=== PATIENT | male | born 1945 | race Caucasian/White ===

== ENCOUNTER 2021-01-16 23:51 | Emergency (ER) | payer MEDICARE, BC, SELFPAY ==
[2021-01-17] VITALS: BP 147/70; PULSE 69; RESP 16; TEMP 36.4; O2SAT 100
--- NOTE | 2021-01-17 00:27 | ED.EXTPRO ---
HPI - Extremity Problem General Chief complaint: Extremity Problem,Nontraumatic Stated complaint: tingling arms from chemicals Time Seen by Provider: 01/17/21 00:17 History of Present Illness HPI Narrative: Patient is a 75-year-old male who presents ER with right arm tingling. Goes from the elbow down to the wrist. Is tingling and burning type sensation. Intermittent last for 3 to 4 minutes. Better when he rubs his arm. Believes it all started after spraining his arm with some bug killer. No rash. No chest pain or chest pressure. No exertional component. Continues to irritate him despite applying topical hydrocortisone and aloe vera. Related Data Allergies Allergy/AdvReac Type Severity Reaction Status Date / Time No Known Allergies Allergy Verified 01/17/21 00:08 Review of Systems Review of Systems: All systems reviewed & are unremarkable except as noted in HPI and below Constitutional: Constitutional: Denies chills and Denies fever(s) Cardiovascular: Cardiovascular: Denies chest pain and Denies radiating jaw, neck or arm pain Respiratory: Respiratory: Denies cough and Denies dyspnea Integumentary/Breasts: Skin/Breast: Denies pruritus, Denies erythema, Denies rash and Denies skin ulcer Neurologic: Denies syncope, Denies focal weakness and Denies numbness PMFSH Past Medical History Medical History (Updated 01/17/21 @ 00:30 by Rogerio High MD) Mixed hyperlipidemia Screening PSA (prostate specific antigen) Surgical History Surgical History (Updated 01/17/21 @ 00:29 by Rogerio High MD) H/O knee surgery History of right hip replacement Family History Family History Other Diabetes mellitus Hypertension Social History Social History Smoking status: Never smoker Alcohol intake: current Exam Narrative: Exam Narrative: GENERAL: Well-appearing, well-nourished, and in no acute distress. HEAD: Normocephalic, atraumatic. EXTREMITIES: Normal range of motion. No edema. SKIN: Warm, dry, no rash. NEURO: No focal deficits. Alert and oriented x3. PSYCH: Normal mood and affect. Course Course Emergency Course: Recommend Benadryl for symptoms. Discussed symptoms should improve and is felt to be a chemical irritation. Vital Signs Vital signs: Vital Signs Temperature 97.6 F 01/17/21 00:00 Pulse Rate 69 01/17/21 00:00 Respiratory Rate 16 01/17/21 00:00 Blood Pressure 147/70 H 01/17/21 00:00 Pulse Oximetry 100 01/17/21 00:00 Temperature 97.6 F 01/17/21 00:00 Pulse Rate 69 01/17/21 00:00 Respiratory Rate 16 01/17/21 00:00 Blood Pressure 147/70 H 01/17/21 00:00 Pulse Oximetry 100 01/17/21 00:00 Discharge Plan Discharge Clinical Impression: Contact dermatitis Patient Disposition: Home, Self-Care Condition: Stable Instructions: Contact Dermatitis (ED) Additional Instructions: Take Benadryl as needed for itching. Return to the ER if you cannot breathe, you cannot swallow, you have chest pain or shortness of breath, you have focal weakness in arm or leg. Prescriptions: No Action triamcinolone acetonide 0.1 % cream 1 applic TOPICAL BID Qty: 60 RF: 0 Follow-up/Referrals: Reyes Valero MD [Primary Care Provider] - 1 Week
[2021-01-17] MEDS: diphenhydrAMINE HCl CAP 25 MG CAPSULE PO (00:35)
== END 2021-01-17 00:41 | disposition home or self-care (01) ==
LOC: ANHED 01-17 00:31
PROVIDERS: Emergency Provider Emergency Medicine; PCP Family Medicine
DX: L25.9 Unspecified contact dermatitis, unspecified cause (principal); E78.2 Mixed hyperlipidemia; Z96.641 Presence of right artificial hip joint
CPT/HCPCS: 99282; A9270

== ENCOUNTER → 2021-09-28 15:14 | Outpatient (CLI) | payer MEDICARE, BC, SELFPAY ==
--- NOTE | ~2021-09-28 | XR_ITS ---
EXAMINATION: XR chest 2V DATE: 09/28/2021 15:34 INDICATION: Other chest pain. TECHNIQUE: Frontal and lateral views of the chest were obtained. COMPARISON: Chest 2 views 05/03/2017, chest CT 06/15/2017 FINDINGS: There are numerous nodules in the lungs bilaterally measuring up to 2 cm. There is mild ate lectasis at the lung bases. No pleural effusion or pneumothorax. The heart size is normal. There is m ild chronic anterior wedging of multiple thoracic vertebral bodies. IMPRESSION: 1. Multiple bilateral pulmonary nodules, likely metastatic disease. 2. Mild atelectasis at the lung bases. Reviewed, dictated and finalized at location A.
== END ==
PROVIDERS: Visit Provider Family Medicine
DX: R07.89 Other chest pain (principal); R91.8 Other nonspecific abnormal finding of lung field
CPT/HCPCS: 71046

== ENCOUNTER 2021-09-29 09:27 | Outpatient (CLI) | payer MEDICARE, SELFPAY ==
--- NOTE | ~2021-09-29 | CT_ITS ---
EXAMINATION: CT chest abdomen pelvis w con DATE: 09/29/2021 09:58 INDICATION: Multiple pulmonary nodules, cough, weight loss and mid chest pain TECHNIQUE: Computed tomography (CT) of the chest, abdomen, and pelvis was performed with 100 mL Omnip aque-350 intravenous contrast. Automated exposure control and iterative reconstruction technique were employed. The dose-length product was 995.73 mGy-cm. COMPARISON: 06/15/2017 FINDINGS: CHEST CT: There are multiple bilateral pulmonary nodules with random distribution suspicious for metastatic dis ease. The largest nodules in both lungs are at the posterior medial lung bases measuring 4.6 cm on th e left and 2.0 cm on the right. Very small left pleural effusion. Mild bibasilar atelectasis along th e diaphragm and additional mild discoid atelectasis in the bilateral lower lobes and lingula. No pneu monia, pulmonary edema or pneumothorax. Heart size is normal. No pericardial effusion. Thoracic aorta is normal in caliber with no dissection. No pathologically enlarged thoracic lymphadenopathy. Lucent hemangiomas with typical thickened internal vertical trabecular pattern at both T10 and T11. Chronic mild anterior wedging at T8. ABDOMEN/PELVIS CT: No interval change in fluid attenuation cysts at the dome of the liver, the largest measuring 1.3 cm. Calcified gallstone in the body of the normal-appearing gallbladder. Pancreas, spleen and bilateral adrenal glands are normal. A few small bilateral renal cysts, the largest on the left measuring up to 2 cm. 3 mm nonobstructing stone in the mid left kidney. Bowels are normal with no wall thickening or obstruction. Bladder is decompressed. There is streak artifact in the pelvis resulting from a right total hip arthroplasty. There is an additional hemangioma at L5. Mild to moderate lower lumbar spondy losis with 6 mm anterolisthesis L4 on L5. No suspicious lytic or blastic bone lesions. IMPRESSION: 1. Multiple pulmonary nodules and masses scattered throughout both lungs with random distribution patricio picious for metastatic disease of indeterminate primary. If there is no prior known primary malignanc y would consider CT-guided biopsy for further evaluation. 2. Very small left pleural effusion. 3. 3 mm nonobstructing left renal stone. Reviewed, dictated and finalized at location A. IMPRESSION: 1. Multiple pulmonary nodules and masses scattered throughout both lungs with r andom distribution suspicious for metastatic disease of indeterminate primary. If there is no prior known primary malignancy would consider CT-guided biopsy f or further evaluation. 2. Very small left pleural effusion. 3. 3 mm nonobstructing left renal stone.
[2021-09-29 09:54] LABS: Estimated Glomerular Filt Rate > 60
== END 2021-09-29 09:28 | disposition home or self-care (01) ==
LOC: ANHIMG 09:30
PROVIDERS: PCP Family Medicine; Visit Provider Family Medicine
DX: R91.8 Other nonspecific abnormal finding of lung field (principal); R63.4 Abnormal weight loss; M48.54XA Collapsed vertebra, not elsewhere classified, thoracic region, initial encounter for fracture; K80.80 Other cholelithiasis without obstruction; K76.89 Other specified diseases of liver; N20.0 Calculus of kidney; M47.816 Spondylosis without myelopathy or radiculopathy, lumbar region; J90 Pleural effusion, not elsewhere classified
CPT/HCPCS: 71260; 74177; Q9967

== ENCOUNTER 2021-10-06 08:57 | Outpatient (CLI) | payer MEDICARE, SELFPAY ==
[2021-10-01 09:54] VITALS: BMI 29.6
--- NOTE | 2021-10-01 09:57 | SUR.PREOP ---
Report to the Outpatient Waiting Room, entrance under the green pavilion located off [facility], at time _0900 on date _10/06/21 . OR Time: __1100 . - You and your visitor will be asked a series of questions to screen for COVID 19 for your protection. - A mask is required within the hospital. Preoperative COVID Testing Requirements: No COVID Test needed if: (proof is required; if not received patient will have Rapid Test prior to entry) - Patient has received COVID Vaccine at least 14 days prior to procedure date or - Patient has positive COVID test result within last 90 days of surgery date. COVID Test needed if above criteria is not met If not COVID vaccinated a COVID test must be conducted within 72 hours of surgery and patient is asked to isolate self from time of testing until procedure. You will go to the [facility] for your COVID testing. The [facility] site is located at the corner of [address] [facility]. You will only be called if COVID results are positive and your surgeon may reschedule your elective surgery date. NOTHING TO EAT OR DRINK 6 HOURS PRIOR TO PROCEDURE Take the following medications with a SIP of water the morning of surgery: ___NONE Medications to discontinue per physician NONE Date to take last dose Please no make-up, nail kazakh, hairspray, perfume, deodorant, or body powder the day of surgery. No jewelry (including any body piercings) or valuables the day of surgery, leave them at home. Please take a shower or bath the night before, or the morning of, surgery with an antibacterial soap. Wear comfortable, loose fitting clothing. Children are encouraged to wear pajamas. - Jewelry must be removed prior to entering the operating room. Rings and piercings that are not removed may be cut off. - The hospital will not accept responsibility for valuables. - Please leave all valuables, including medications, at home the day of surgery. If you are going home after surgery, a licensed helper driver must drive you home. - NO public transportation without another adult. - We recommend that an adult stay with you for 24 hours following discharge. - We also recommend that you do not drive, make important decision, drink alcoholic beverages, or take any drugs that were not prescribed by your health care provider for at least 24 hours after your discharge time. One visitor will be allowed to accompany the patient into the hospital. Patients visitor will be instructed to remain with patient at all times or leave the building. We will allow the visitor to come back to the postoperative area when patient is ready. Follow any additional instructions given to you. Telephone instructions given to __PATIENT and asked if any additional questions and then verbalized understanding. Patient advised to call surgeon office or pre surgery nurse liaison [phone] if any additional questions.
[2021-10-06] VITALS (10 sets, daily range): BP systolic 118–148; BP diastolic 65–80; PULSE 82–93; RESP 16–20; TEMP 36.3; O2SAT 96–100
--- NOTE | ~2021-10-06 | XR_ITS ---
EXAMINATION: XR chest 1V portable DATE: 10/06/2021 12:33 INDICATION: Status post percutaneous left lung biopsy TECHNIQUE: frontal view of the chest was obtained. COMPARISON: Chest radiograph dated 10/06/[address] dated 09/29/2021 FINDINGS: Lung volumes remain small with persistent mild bibasilar atelectasis/scarring. There are numerous sca ttered bilateral pulmonary nodules consistent with metastatic disease. No pneumothorax or definitive pleural effusion. The cardiomediastinal silhouette is normal. IMPRESSION: 1. No pneumothorax or other acute cardiopulmonary disease post percutaneous left lung biopsy. 2. Numerous bilateral pulmonary nodules consistent with metastatic disease. Reviewed, dictated and finalized at location A. IMPRESSION: 1. No pneumothorax or other acute cardiopulmonary disease post percutaneous lef t lung biopsy. 2. Numerous bilateral pulmonary nodules consistent with metastatic disease.
--- NOTE | ~2021-10-06 | XR_ITS ---
XR chest 1V portable 10/06/2021 14:31 Indication: Post image guided biopsy. Procedure: AP portable chest Comparison: Comparison to multiple prior studies sequentially, with oldest reviewed study dated 04/17. Findings: No pneumothorax identified. There is bibasilar atelectasis. There are innumerable pulmonary nodules consistent with metastases. Stable mediastinal silhouette. Impression: 1: No pneumothorax identified post procedure. 2: Pulmonary metastases. Reviewed, dictated and finalized at location A. Impression: 1: No pneumothorax identified post procedure. 2: Pulmonary metastases.
--- NOTE | ~2021-10-06 | XR_ITS ---
EXAMINATION: XR chest 1V DATE: 10/06/2021 11:33 INDICATION: Status post percutaneous left lung biopsy TECHNIQUE: frontal view of the chest was obtained. COMPARISON: Chest radiograph dated 09/28/2021 FINDINGS: Small lung volumes. Again seen are multiple nodules scattered throughout both lungs consistent with m etastatic disease. No pulmonary edema, pleural effusion or pneumothorax. The cardiomediastinal silhou ette is normal. Prior distal right clavicle resection. IMPRESSION: 1. No pneumothorax or other acute cardiopulmonary disease post percutaneous biopsy of one of numerous bilateral pulmonary nodules concerning for metastatic disease. Reviewed, dictated and finalized at location A. IMPRESSION: 1. No pneumothorax or other acute cardiopulmonary disease post percutaneous bio psy of one of numerous bilateral pulmonary nodules concerning for metastatic di sease.
--- NOTE | ~2021-10-06 | CT_ITS ---
EXAMINATION: CT biopsy lung w/imaging DATE: 10/06/2021 11:43 INDICATION: Multiple bilateral pulmonary nodules consistent with metastatic disease. TECHNIQUE: The procedure including the risks and benefits was discussed with the patient. Risks discu ssed included infection, approximately 1/20 risk of symptomatic hemorrhage beyond mild hemoptysis, ap proximately 1/3 risk of pneumothorax, and approximately 1/10 risk of pneumothorax severe enough to wa rrant chest tube placement. The patient understood the risks and agreed to proceed. The patient was p laced supine. The skin overlying the posterior medial left lower thorax was prepped and draped in st erile fashion. Anesthetic was administered with 1% lidocaine subcutaneously. A 19 gauge outer needl e was advanced under CT guidance to the lesion of interest. A 20 gauge core biopsy needle was then us ed to obtain 5 core biopsy specimens. The needle was removed and the entry site was cleaned and dress ed. There were no immediate complications. The dose-length product was 180.37 mGy-cm. FINDINGS: CT images demonstrate the outer needle tip adjacent to a 5.4 x 3.6 cm mass at the posterior sulcus of the left lower lobe. There are multiple additional scattered pulmonary nodules consistent with metastatic disease.. IMPRESSION: 1. Successful CT-guided biopsy of a 5.4 x 3.6 cm left lower lobe mass suspicious for metastatic disea se. Reviewed, dictated and finalized at location A. IMPRESSION: 1. Successful CT-guided biopsy of a 5.4 x 3.6 cm left lower lobe mass suspiciou s for metastatic disease.
[2021-10-06 10:01] LABS: Mean Platelet Volume 8.6 fl (7.4-10.4); Platelet Count Result 502 k/mm3 (150-375)
[2021-10-06 10:15] LABS: INR 1.5; Prothrombin Time 17.8 Seconds (11.1-14.7)
--- NOTE | 2021-10-06 15:05 | SUR.PHASEII ---
DR OBANDO CAME AND SPOKE WITH PT AND SAID PT IS OK TO DISCHARGE. DISCHARGED HOME WITH .
== END 2021-10-06 15:05 | disposition home or self-care (01) ==
PROVIDERS: PCP Family Medicine; Visit Provider Radiology Diagnostic Radiology
PROC: BB24ZZZ Computerized Tomography (CT Scan) of Bilateral Lungs (ICD-10-PCS; CPT 32408; principal; 2021-10-06 11:00)
DX: R91.8 Other nonspecific abnormal finding of lung field (principal); C34.32 Malignant neoplasm of lower lobe, left bronchus or lung
CPT/HCPCS: 32408; 36415; 71045; 85049; 85610; 88305; 88342

== ENCOUNTER 2021-10-20 13:33 | Outpatient (CLI) | payer MEDICARE, SELFPAY ==
--- NOTE | ~2021-10-20 | PE_ITS ---
EXAMINATION: PET skull to mid thigh DATE: 10/20/2021 15:18 INDICATION: Multiple lung nodules TECHNIQUE: Blood glucose level was 91 mg/dL. 11.42 mCi of 18-fluorodeoxyglucose (18-FDG) was administ ered i.v. Low dose computed tomography (CT) images were acquired from the base of the brain to the pr oximal thighs for attenuation correction and anatomic localization. Positron emission tomography (PET ) images were acquired in the same distribution beginning 52 minutes after injection. Images includin g fused PET/CT images were reconstructed in axial, coronal, and sagittal planes. Automated exposure c ontrol technique was employed. The dose-length product was 605.27mGy-cm. COMPARISON: CT dated 09/29/2021 FINDINGS: Head/neck: There is symmetric mild increased activity in the oral cavity without CT correlate, likely physiologi c. No pathologically enlarged cervical lymphadenopathy or suspicious foci of increased FDG uptake in the visualized head or neck. Chest: There are numerous bilateral FDG avid pulmonary nodules and masses with random distribution including several pleural-based nodules. The largest mass at the medial basilar left lower lobe measures 6.9 c m in maximal diameter. This significantly larger than at the time of the prior CT at which time the m ass measured 4.8 cm maximal diameter. For reference a second mass at the posterior basilar segment of the right lower lobe has increased from 2.9 cm 3.7 cm in maximal diameter. There is peripheral incre ased FDG uptake with maximal SUV of 11.2 with likely central necrosis without corresponding FDG uptak e. Small left pleural effusion. Heart size is normal. No pericardial effusion. No pathologically enla rged or FDG avid thoracic lymphadenopathy. Abdomen/pelvis/proximal thighs: Physiologic renal accumulation and excretion of FDG activity in the kidneys, bladder and along portio ns of ureters. Again seen are a few low-attenuation left renal cysts. 3 mm nonobstructing left renal stone. Normal degree and heterogenous pattern of increased uptake throughout the liver without radiol ogic correlate or dominant FDG avid lesion. 1.5 cm low-attenuation cyst at the posterior medial dome of the liver. Calcified gallstone in the otherwise normal-appearing gallbladder. The gallbladder, esteban creas, spleen and bilateral adrenal glands are normal. Mild uptake scattered throughout the bowels wi thout radiologic correlate, also likely physiologic. No other abnormal foci of increased FDG uptake or pathologically enlarged lymphadenopathy in the abdomen, pelvis or proximal thighs. Musculoskeletal: Prominent FDG uptake with maximal SUV of 9.8 associated with a lytic lesion in the right sacral ala w hich measures up to 3.9 x 3.1 cm and with loss of the cortex at the sacral side of the sacroiliac ángel nt. Photopenic defects associated with lucent lesions with thickened vertical trabecula consistent wi th hemangiomas at T10, T11 and L5. No other suspicious lytic, blastic or FDG avid bone lesions. Incre ased uptake overlying the left greater trochanter without radiologic correlate consistent with trocha nteric bursitis. Right total hip arthroplasty. IMPRESSION: 1. Increased FDG uptake associated with a lytic lesion at the right cervical ala. No other suspicious bone lesions identified. 2. Increased FDG uptake associated with multiple bilateral pulmonary nodules and masses consistent wi th metastatic disease which have increased in size since the study less than 3 weeks prior. Would rec ommend ultrasound-guided biopsy of one of the larger pleural-based nodules along the anterior lingula . 3. Likely loculated small left pleural effusion which is also increased in size. 4. Cholelithiasis. 5. 3 mm nonobstructing left renal stone. Reviewed, dictated and finalized at location B. Electronically signed by Venkatesh
[2021-10-20 13:53] LABS: Glucose Point of Care 91 mg/dl (65-105)
== END 2021-10-20 13:34 | disposition home or self-care (01) ==
LOC: ANHIMG 13:34
PROVIDERS: PCP Family Medicine; Visit Provider Family Medicine
DX: C49.9 Malignant neoplasm of connective and soft tissue, unspecified (principal); C78.00 Secondary malignant neoplasm of unspecified lung; R91.8 Other nonspecific abnormal finding of lung field; M89.9 Disorder of bone, unspecified; J90 Pleural effusion, not elsewhere classified; K80.20 Calculus of gallbladder without cholecystitis without obstruction; N20.0 Calculus of kidney
CPT/HCPCS: 78815; A9552

== ENCOUNTER 2021-11-09 07:30 | Outpatient (CLI) | payer MEDICARE, SELFPAY ==
--- NOTE | 2021-11-09 07:38 | ECHO_ITS ---
Patient Info Name: Jaguar Swenson Age: 76 years : 1945 Gender: Male Ht: 70 in Wt: 180 lbs BSA: 2.02 m2 HR: 95 bpm BP: 124 / 76 mmHg Technical Quality: Good Exam Date: 11/09/2021 8:12 AM Exam Location: [facility] Patient Status: Outpatient Admit Date: 11/09/2021 Staff Ordering Physician: Maritza Guevara Referral Agent: Hugo Aleman RDCS, RT Attending Provider: Reyes Valero MD Referring Physician: Paola SARABIA; Exam Type: CA echo doppler color flow Study Info Indications R06.00 - Dyspnea, unspecified Complete two-dimensional, color flow and Doppler transthoracic echocardiogram is performed. Strain analysis performed. Summary 1. Complete two-dimensional, color flow and Doppler transthoracic echocardiogram is performed. 2. Left ventricular chamber dimension is normal. 3. Left ventricular systolic function is normal, estimated at 60-65%. 4. The left ventricular diastolic function is grade I diastolic dysfunction. 5. E/e' 4 is not elevated. 6. Global longitudinal strain is abnormal at -15.7%. 7. There is mild aortic valve stenosis based on a peak velocity of 193 cm/s, mean gradient of 8 mmHg, and aortic valve area of 1.8 cm2. 8. There is mild aortic valve sclerosis. 9. No pulmonary hypertension, estimated pulmonary arterial systolic pressure is 36 mmHg. 10. Dilated inferior vena cava with >50% collapse upon inspiration consistent with elevated right atrial pressure, 10 mmHg. Left Ventricle E/e' 4 is not elevated. Global longitudinal strain is abnormal at -15.7%. Left ventricular chamber dimension is normal. Left ventricular systolic function is normal, estimated at 60-65%. The left ventricular diastolic function is grade I diastolic dysfunction. Right Ventricle Right ventricular systolic function is normal and with normal TAPSE 2.5 cm. Right ventricular chamber dimension is normal. Left Atria Left atrial chamber dimension is normal. Right Atria Right atrial chamber dimension is normal. Aortic Valve The aortic valve is not well visualized. Cannot determine number of aortic valve leaflets. There is mild aortic valve stenosis based on a peak velocity of 193 cm/s, mean gradient of 8 mmHg, and aortic valve area of 1.8 cm2. There is mild aortic valve sclerosis. There is no aortic valve regurgitation. Pulmonic Valve There is no pulmonic regurgitation. Mitral Valve There is no mitral valve stenosis. There is no mitral valve regurgitation. Tricuspid Valve There is no tricuspid valve regurgitation. No pulmonary hypertension, estimated pulmonary arterial systolic pressure is 36 mmHg. Pericardium/Pleural There is no pericardial effusion. Inferior Vena Cava Dilated inferior vena cava with >50% collapse upon inspiration consistent with elevated right atrial pressure, 10 mmHg. Aorta The aortic root size at the sinus of Valsalva is normal. Left Ventricular Outflow Tract Name Value Normal LVOT 2D LVOT Diameter 2.0 cm LVOT Doppler LVOT Peak Gradient 4 mmHg LVOT Mean Gradient 2 mmHg LVOT VTI
== END 2021-11-09 07:31 | disposition home or self-care (01) ==
LOC: ANHLAB 07:33
PROVIDERS: PCP Family Medicine; Visit Provider Family Medicine
DX: R06.00 Dyspnea, unspecified (principal); R60.0 Localized edema; R05.9 Cough, unspecified
CPT/HCPCS: 93306